=== PATIENT | female | born 1950 | race Caucasian/White ===

== ENCOUNTER 2021-03-10 22:50 | Emergency (ER) | payer BC ==
[~2021-03-10] VITALS: Ht 182.9 cm; Wt 59.0 kg
[~2021-03-10 22:50] MED LIST: Armour Thyroid90 MG PO; Naprosyn500 MG PO; Percocet 5-3251 EACH PO; [UNRECOGNIZED DRUG - OTHER] MC
== END 2021-03-11 00:15 | disposition home or self-care (01) ==
LOC: ER 22:50
DX: S01.112A Laceration without foreign body of left eyelid and periocular area, initial encounter (principal); S40.212A Abrasion of left shoulder, initial encounter; Z87.891 Personal history of nicotine dependence; W01.198A Fall on same level from slipping, tripping and stumbling with subsequent striking against other object, initial encounter
CPT/HCPCS: 99282

== ENCOUNTER 2024-12-10 17:13 | Emergency (ER) | payer BC ==
[~2024-12-10] VITALS: Ht 167.6 cm; Wt 55.8 kg
[2024-12-10 17:27] VITALS: BP 130/83
== END 2024-12-10 19:15 | disposition home or self-care (01) ==
LOC: ER 17:13
DX: S00.03XA Contusion of scalp, initial encounter (principal); W14.XXXA Fall from tree, initial encounter; Z87.891 Personal history of nicotine dependence; Z79.899 Other long term (current) drug therapy
CPT/HCPCS: 70450

== ENCOUNTER → 2025-07-27 | Outpatient (CLI) | payer BC | LOC: LAB 09:20 → LAB SHORT 09:20 | DX: Z00.00 Encounter for general adult medical examination without abnormal findings (principal); N95.1 Menopausal and female climacteric states; Z13.220 Encounter for screening for lipoid disorders; Z13.1 Encounter for screening for diabetes mellitus; M85.80 Other specified disorders of bone density and structure, unspecified site; E03.9 Hypothyroidism, unspecified; G62.9 Polyneuropathy, unspecified | CPT/HCPCS: 85651 ==